=== PATIENT | female | born 1945 | race American Indian/Alaskan Native ===

== ENCOUNTER 2020-09-16 08:52 | Observation (INO) | payer MEDICARE ==
[2020-09-16] MEDS ORDERED: SODIUM CHLORIDE 0.9% 500 ML 500 ML IV SCH (10:00)
[2020-09-16] MEDS ORDERED: ASPIRIN EC 325 MG TAB PO NR (10:21)
[2020-09-16 10:25] LABS: Hemoglobin 11.4 gm/dl (10.1-14.3); Mean Corpuscular HGB Conc 34 % (30-34); Mean Corpuscular Volume 95 fl (79-97); Platelet Count 269 K/mm3 (140-440); Red Blood Count 3.56 M/mm3 (3.65-5.03); Red Cell Distribution Width 14.7 % (13.2-15.2)
[2020-09-16 10:38] LABS: Blood Urea Nitrogen 12 mg/dL (7-17); Calcium 9.4 mg/dL (8.4-10.2); Hemolysis Index 1
[2020-09-16 10:48] LABS: BUN/Creatinine Ratio 17
[2020-09-16 11:17] LABS: Total Cells Counted 100
[2020-09-16 11:18] LABS: Platelet Estimate Consistent w Auto; RBC Morphology Normal
[2020-09-16 11:23] LABS: INR 1.01 (0.87-1.13)
[2020-09-16] MEDS: NITROGLYCERIN SYRINGE 3 ML ONE ×2 (12:40→13:08)
[2020-09-16] MEDS: HEPARIN/NS 5000 UNIT/500ML 1,000 ML IR ONE ×2 (12:40→13:00)
[2020-09-16] MEDS: LIDOCAINE (2%) 20 MG/1 ML VIAL 20 ML MDV INFILTRATI ONE ×2 (12:41→13:04)
[2020-09-16] MEDS: VERAPAMIL 5 MG/2 ML INJ ONE ×2 (12:41→13:08)
[2020-09-16] MEDS: fentaNYL 100 MCG/2 ML INJ ONE ×3 (12:41→13:05)
[2020-09-16] MEDS: MIDAZOLAM 2 MG/2 ML INJ ONE ×3 (12:41→13:05)
[2020-09-16] MEDS: HEPARIN 10,000 UNITS/10 ML VIAL ONE ×4 (12:42→13:45)
[2020-09-16] MEDS ORDERED: ALUM-MAG HYDROXIDE-SIMETHICONE 200-200-20MG/5ML ORAL LIQD 30 ML ONE (14:00)
[2020-09-16] MEDS ORDERED: CLOPIDOGREL 75 MG TAB ONE (14:00)
--- NOTE | 2020-09-16 14:13 | Cardiac Catherization Report ---
CARDIAC CATHETERIZATION AND CORONARY ANGIOPLASTY REASON FOR PROCEDURE: Chest pain, abnormal thallium stress test. PROCEDURES: 1. Left heart catheterization. 2. Selective left and right coronary angiography. 3. Left ventricular angiography. 4. Coronary angioplasty and stenting of the right coronary artery. 5. Sedation time, start 1303, end 1350. I was present for the entire procedure and supervised the moderate sedation protocol. The patient was prepped and draped in a sterile fashion after informed consent. Right radial cath site was prepped and draped after a negative Davis's test. Right radial artery was entered using Seldinger technique followed by placement of a 6-Bel[place]ian hydrophilic sheath. Routine radial cocktail was administered via the sheath. Selective left and right coronary angiography was performed using a #3.5 left Vero and #4 right Vero. The right Vero catheter was used for left ventricular angiography. The angiograms were reviewed. CORONARY ANGIOGRAPHY: The left main coronary artery was free of significant disease. Left anterior descending artery and its diagonal branches contained mild luminal irregularities. The circumflex artery and its obtuse marginal branches were free of significant disease. The right coronary artery was dominant. This vessel contained long segment of severe disease in its mid portion, associated with moderate calcification. There was an up to 75-80% luminal stenosis within this segment. Following that, around the acute margin, there was another severe lesion, with up to 95% luminal stenosis. Left ventricular systolic function was within normal limits with ejection fraction estimated at greater than 60-65%. CORONARY ANGIOPLASTY: After review of the angiograms, ad hoc intervention to the right coronary artery was recommended. We selected a hockey-stick guiding catheter and advanced to the right coronary ostium. A 0.014 inch Instruction Dean 50 guidewire was then transitioned through the vessel across the lesional segments. Pre-dilatation balloon angioplasty using a 3.0 mm balloon catheter, both around the acute margin and in the mid vessel. Following balloon pre-dilatation, we then deployed a 3.0 x 15 mm drug-eluting stent around the acute margin. This was followed by another 3.0 x 26 mm drug-eluting stent across the mid segment stenosis. Post-dilatation balloon angioplasty was then done around the acute margin using a 3.0 mm NC balloon. Following angioplasty, stenting and post-dilatation, there was an excellent angiographic result at the treated segments, 0 residual stenosis and CHARMAINE 3 flow. Procedure was well tolerated by the patient and there were no complications. The catheters and the wires were removed, sheath removed, and hemostasis achieved using a TR band. CONCLUSION: 1. Single-vessel coronary artery disease with severe diffuse disease of the mid segment of the right coronary artery, and the focal severe stenosis around the acute margin. 2. Successful ad hoc angioplasty and stenting with deployment of serial, 3.0 mm drug-eluting stents. 3. Normal left ventricular systolic function, ejection fraction 60-65%. JOB# [id number] CA/NTS
[2020-09-16] MEDS ORDERED: ZOLPIDEM 5 MG TAB PO PRN (14:16)
[2020-09-16] MEDS ORDERED: ONDANSETRON 4 MG/2 ML INJ IV PRN (14:16)
--- NOTE | 2020-09-16 14:22 | Event Note ---
Date: 09/16/20 The patient presented for outpatient cardiac catheterization, completed via the right radial approach, no complications. We found a long segment of disease of the mid right coronary artery, as well as around the acute margin. Successful angioplasty was performed with implantation of serial, 3.0 mm drug-eluting stents. Excellent angiographic result, no complications. The patient will be admitted for routine, 23-hour post procedure observation, anticipated discharge in the morning. Aspirin, Plavix, for dual oral antiplatelet therapy in addition to other guideline directed medical therapy.
[2020-09-16] MEDS ORDERED: NON-FORMULARY EACH (Losartan [Cozaar] 100 MG Tablet) PO SCH (14:30)
[2020-09-16] MEDS ORDERED: SODIUM CHLORIDE 0.9% 1000 ML 1,000 ML IV SCH (15:30)
[2020-09-16] MEDS: METOPROLOL SUCCINATE XL 25 MG TAB PO SCH (16:17)
[2020-09-16] MEDS: amLODIPine 5 MG TAB PO SCH (16:19)
[2020-09-17 06:16] LABS: Basophils % (Auto) 0.6 % (0.0-1.8); Eosinophils % (Auto) 1.3 % (0.0-4.3); Hematocrit 28.2 % (30.3-42.9); Hemoglobin 9.5 gm/dl (10.1-14.3); Lymphocytes % (Auto) 26.7 % (13.4-35.0); Mean Corpuscular HGB Conc 34 % (30-34); Mean Corpuscular Volume 96 fl (79-97); Monocytes # (Auto) 0.4 K/mm3 (0.0-0.8); Monocytes % (Auto) 10.9 % (0.0-7.3); Platelet Count 217 K/mm3 (140-440); Red Blood Count 2.95 M/mm3 (3.65-5.03); Red Cell Distribution Width 14.7 % (13.2-15.2)
[2020-09-17 06:47] LABS: Blood Urea Nitrogen 14 mg/dL (7-17); Calcium 8.2 mg/dL (8.4-10.2); Hemolysis Index 18
[2020-09-17 06:49] LABS: BUN/Creatinine Ratio 23
[2020-09-17 06:58] LABS: Chol/HDL Ratio 3.03 %; HDL Cholesterol 32 mg/dL (40-59); LDL Cholesterol,Direct 54 mg/dL (50-130)
--- NOTE | 2020-09-17 08:34 | XRay Report ---
CHEST 1 VIEW INDICATION: post pci. COMPARISON: None FINDINGS: SUPPORT DEVICES: None. HEART: Within normal limits. LUNGS/PLEURA: No acute air space or interstitial disease. ADDITIONAL FINDINGS: None. IMPRESSION: 1. No acute findings. Signer Name: Noel Alves MD Signed: 09/17/2020 8:29 AM Workstation Name: [id number]
[2020-09-17 09:44] VITALS: BP 126/63
[2020-09-17] MEDS: METOPROLOL SUCCINATE XL 25 MG TAB PO SCH (09:45)
[2020-09-17] MEDS: amLODIPine 5 MG TAB PO SCH (09:46)
--- NOTE | 2020-09-17 09:52 | Short Stay Summary ---
Short Stay Documentation Date of service: 09/17/20 - History H&P: obtained from office - Allergies and Medications Current Medications: Allergies No Known Allergies Allergy (Verified 09/16/20 09:47) Home Medications Medication Instructions Recorded Confirmed Last Taken Type Clopidogrel [Plavix] 75 mg PO DAILY 09/16/20 09/16/20 09/16/20 10:40 History Losartan [Cozaar] 100 mg PO DAILY 09/16/20 09/16/20 09/15/20 History 100 mg Metoprolol Xl [Metoprolol 25 mg PO DAILY 09/16/20 09/16/20 09/15/20 History SUCCINATE ER TAB] 25 mg Triamter/Hctz 37.5-25 mg 1 tab PO DAILY 09/16/20 09/16/20 09/15/20 History [Maxzide-25] 1 tab amLODIPine 5 mg PO DAILY 09/16/20 09/16/20 09/15/20 History 5 mg Active Medications Amlodipine Besylate (Amlodipine 5 Mg Tab) 5 mg PO DAILY [facility] Last Admin: 09/17/20 09:46 Dose: 5 mg Documented by: Aspirin (Aspirin Ec 325 Mg Tab) 325 mg PO QDAY [facility] Last Admin: 09/17/20 09:45 Dose: 325 mg Documented by: Atorvastatin Calcium (Atorvastatin 40 Mg Tab) 40 mg PO QHS [facility] Last Admin: 09/16/20 21:54 Dose: 40 mg Documented by: Clopidogrel Bisulfate (Clopidogrel 75 Mg Tab) 75 mg PO DAILY [facility] Last Admin: 09/17/20 09:45 Dose: 75 mg Documented by: Sodium Chloride (Nacl 0.9% 1000 Ml) 1,000 mls @ 100 mls/hr IV DIRECT [facility] Stop: 09/17/20 15:29 Last Admin: 09/16/20 15:00 Dose: 100 mls/hr Documented by: Isosorbide Mononitrate (Isosorbide Mononitrate Er 30 Mg Tab) 30 mg PO QDAY [facility] Last Admin: 09/17/20 09:45 Dose: 30 mg Documented by: Losartan Potassium (Losartan 50 Mg Tab) 100 mg PO QDAY [facility] Last Admin: 09/17/20 09:45 Dose: 100 mg Documented by: Metoprolol Succinate (Metoprolol Succinate Xl 25 Mg Tab) 25 mg PO DAILY [facility] Last Admin: 09/17/20 09:45 Dose: 25 mg Documented by: Ondansetron HCl (Ondansetron 4 Mg/2 Ml Inj) 4 mg IV Q8H PRN PRN Reason: N/V unrelieved by Fidencio Triamterene/Hydrochlorothiazide (Triamter/Hctz 37.5-25 Mg Tab) 1 each PO DAILY [facility] Last Admin: 09/17/20 09:47 Dose: 1 each Documented by: Zolpidem Tartrate (Zolpidem 5 Mg Tab) 5 mg PO QHS PRN PRN Reason: Sleep - Physical exam General appearance: no acute distress HEENT: PERRLA Heart: Regular rate, Normal S1, Normal S2 Extremities: No edema - Brief post op/procedure progress note Procedure: The patient presented for outpatient cardiac catheterization, completed via the right radial approach, no complications. We found a long segment of disease of the mid right coronary artery, as well as around the acute margin. Successful angioplasty was performed with implantation of serial, 3.0 mm drug-eluting stents. Excellent angiographic result, no complications. Condition: stable - Hospital course Hospital course: Stable overnight observation. - Disposition Condition at discharge: Stable Disposition: DC-01 TO HOME OR SELFCARE Short Stay Discharge Plan Activity: advance as tolerated Weight Bearing Status: Full Weight Bearing Diet: low fat, low cholesterol, low salt Wound: open to air, keep clean and dry Follow up with: NEW AMES MD [Primary Care Provider] - 7 Days PEARL CLARK MD [Staff Physician] - 7 Days Prescriptions: Aspirin EC [Ecotrin] 325 mg PO QDAY #30 tablet ISOSORBIDE MONOnitrate [Imdur ER] 30 mg PO QDAY #30 tablet Clopidogrel [Plavix] 75 mg PO DAILY #30
[2020-09-17] MEDS ORDERED: LOSARTAN 50 MG TAB PO SCH (10:00)
[2020-09-17] MEDS ORDERED: CLOPIDOGREL 75 MG TAB PO SCH (10:00)
[2020-09-17] MEDS ORDERED: ASPIRIN EC 325 MG TAB PO SCH (10:00)
[2020-09-17] MEDS ORDERED: TRIAMTER/HCTZ 37.5-25 MG TAB PO SCH (10:00)
== END 2020-09-17 12:22 | disposition home or self-care (01) ==
LOC: CATHLABREC 08:52 → 4A 14:16
PROVIDERS: ADMIT Internal Medicine Cardiovascular Disease; ATTEND Internal Medicine Cardiovascular Disease
DX: I25.10 Atherosclerotic heart disease of native coronary artery without angina pectoris (principal); I73.9 Peripheral vascular disease, unspecified; I71.4 Abdominal aortic aneurysm, without rupture; I10 Essential (primary) hypertension; E78.5 Hyperlipidemia, unspecified; I34.0 Nonrheumatic mitral (valve) insufficiency; M79.662 Pain in left lower leg; R42 Dizziness and giddiness; R07.89 Other chest pain; R94.31 Abnormal electrocardiogram [ECG] [EKG]; R55 Syncope and collapse; Z98.61 Coronary angioplasty status; Z79.82 Long term (current) use of aspirin
CPT/HCPCS: 36415; 71045; 80048; 80061; 82550; 82553; 82962; 84484; 85025; 85610; 85730; 93005; 93458; 96360; 96361; A9270; C1725; C1769; C1874; C1894; C9600; G0378; J1644; J2250; J3010; J7030; J7040; 85007; 92928; Q9967

== ENCOUNTER 2022-03-18 08:09 | Emergency (ER) | payer MEDICARE ==
--- NOTE | 2022-03-18 08:58 | XRay Report ---
CHEST 2 VIEWS INDICATION / CLINICAL INFORMATION: Dyspnea. COMPARISON: None available. FINDINGS: SUPPORT DEVICES: None. HEART / MEDIASTINUM: No significant abnormality. LUNGS / PLEURA: 3 cm right upper lung masslike opacity. No pneumothorax. ADDITIONAL FINDINGS: No significant additional findings. IMPRESSION: 1. 3 cm right upper lung masslike opacity. CT chest is recommended for further evaluation. Signer Name: Srini Rodriguez MD Signed: 03/18/2022 8:53 AM Workstation Name: [id number]
[2022-03-18 09:18] LABS: INR 0.91 (0.87-1.13)
[2022-03-18 09:19] LABS: Partial Thromboplastin Time 36.2 Sec. (24.2-36.6)
[2022-03-18 09:26] LABS: Creatine Kinase MB 2.6 ng/mL (0.0-4.0)
[2022-03-18 09:30] LABS: Alanine Aminotransferase 14 units/L (7-56); Albumin 4.3 g/dL (3.9-5); Blood Urea Nitrogen 6 mg/dL (7-17); Calcium 9.6 mg/dL (8.4-10.2); Hemolysis Index 3
[2022-03-18 09:31] LABS: BUN/Creatinine Ratio 10
[2022-03-18] MEDS ORDERED: ALBUTEROL 2.5 MG/3 ML NEBU IH ONE ×2 (10:09→12:13)
[2022-03-18] MEDS ORDERED: methylPREDNISolone Sod Succinate 125 MG/2 ML INJ IV ONE (10:10)
[2022-03-18] MEDS ORDERED: SODIUM CHLORIDE 0.9% 500 ML 500 ML IV ONE (10:14)
[2022-03-18 10:26] LABS: Basophils % (Auto) 0.7 % (0.0-1.8); Eosinophils # (Auto) 0.1 K/mm3 (0.0-0.4); Eosinophils % (Auto) 1.7 % (0.0-4.3); Hematocrit 27.6 % (30.3-42.9); Hemoglobin 9.6 gm/dl (10.1-14.3); Lymphocytes # (Auto) 0.4 K/mm3 (1.2-5.4); Lymphocytes % (Auto) 9.5 % (13.4-35.0); Mean Corpuscular HGB Conc 35 % (30-34); Mean Corpuscular Volume 93 fl (79-97); Monocytes # (Auto) 0.3 K/mm3 (0.0-0.8); Monocytes % (Auto) 7.3 % (0.0-7.3); Platelet Count 341 K/mm3 (140-440); Red Blood Count 2.96 M/mm3 (3.65-5.03); Red Cell Distribution Width 16.9 % (13.2-15.2)
--- NOTE | 2022-03-18 12:20 | Cat Scan Report ---
CT CHEST WITH CONTRAST INDICATION / CLINICAL INFORMATION: RUL mass, sob, cough, wheezing. TECHNIQUE: Axial CT images were obtained through the chest after IV contrast. All CT scans at this [facility] are performed using CT dose reduction for ALARA by means of automated exposure control. COMPARISON: Same day radiograph FINDINGS: HEART: No significant abnormality. CORONARY ARTERY CALCIFICATION: Not evaluable -- Coronary stent(s). THORACIC AORTA: Mild atherosclerotic calcification without acute abnormality. MEDIASTINUM / RALEIGH: No significant abnormality. PLEURA: No pleural effusion. No pneumothorax. LUNGS: Right upper lobe cavitary lesion measures 3.1 x 2.8 cm on image 45 series 2. ADDITIONAL FINDINGS: None. UPPER ABDOMEN: Left adrenal nodule measures 2.1 x 1.9 cm on image 119 series 2. SKELETAL SYSTEM: No significant abnormality. IMPRESSION: 1. Cavitary lesion in the right upper lobe most likely represents primary pulmonary malignancy. Left adrenal nodule is concerning for metastatic disease. Cavitary infection such as tuberculosis is not e xcluded. IMPORTANT FINDING: Cavitary lesion Time of Communication (FIRE CHIEF'S AIDE/CDT): 11:15 Licensed Practitioner Receiving Report: Dr. Garcia Signer Name: Srini Rodriguez MD Signed: 03/18/2022 12:16 PM Workstation Name: [employer]
[2022-03-18] MEDS ORDERED: DOXYCYCLINE 100 MG CAP PO ONE (12:58)
[2022-03-18 13:15] VITALS: BP 146/80
--- NOTE | 2022-03-18 13:42 | Emergency Department Report ---
HPI - General Chief Complaint: Dyspnea/Respdistress PUI?: Yes Time Seen by Provider: 03/18/22 09:12 - HPI HPI: 76-year-old female with multiple medical comorbidities brought in by her daughter for evaluation of several days of progressively worsening yellow phlegm productive cough wheezing and shortness of breath. Patient denies any sick contacts or travel history. She has been taking [id number] Robitussin without improvement in her symptoms. She denies any chest pain, no recent prolonged travel history or immobilization. No night sweats, no body aches, no fevers/chills no hemoptysis, no unintentional weight loss. No recent prolonged travel hx or immobilization. ED Past Medical Hx - Past Medical History Hx Hypertension: Yes Hx Heart Attack/AMI: No Hx Congestive Heart Failure: No Hx Diabetes: No Hx Deep Vein Thrombosis: No Hx Pulmonary Embolism: No Hx GERD: Yes Hx Liver Disease: No Hx Renal Disease: No Hx Sickle Cell Disease: No Hx Arthritis: No Hx Seizures: No Hx Kidney Stones: No Hx Asthma: No Hx COPD: No Hx Dementia: No Hx HIV: No Additional medical history: STROKE ,BRONCHITIS - Surgical History Hx Pacemaker: No Hx Internal Defibrillator: No Hx Cholecystectomy: No Hx Breast Surgery: No - Social History Smoking Status: Current Every Day Smoker Substance Use Type: None - Medications Home Medications: Home Medications Medication Instructions Recorded Confirmed Last Taken Type Losartan [Cozaar] 100 mg PO DAILY 09/16/20 09/16/20 09/15/20 History 100 mg Metoprolol Xl [Metoprolol 25 mg PO DAILY 09/16/20 09/16/20 09/15/20 History SUCCINATE ER TAB] 25 mg Triamter/Hctz 37.5-25 mg 1 tab PO DAILY 09/16/20 09/16/20 09/15/20 History [Maxzide-25] 1 tab amLODIPine 5 mg PO DAILY 09/16/20 09/16/20 09/15/20 History 5 mg Aspirin EC [Ecotrin] 325 mg PO QDAY #30 tablet 09/17/20 Unknown Rx Clopidogrel [Plavix] 75 mg PO DAILY #30 09/17/20 Unknown Rx ISOSORBIDE MONOnitrate [Imdur ER] 30 mg PO QDAY #30 tablet 09/17/20 Unknown Rx Rosuvastatin (Nf) [Crestor] 5 mg PO QHS 09/17/20 09/17/20 Unknown History Albuterol Sulfate [Proventil Hfa] 6.7 gm IH Q4H 7 Days #1 03/18/22 Unknown Rx Doxycycline Monohydrate 100 mg PO BID 7 Days #14 cap 03/18/22 Unknown Rx [Doxycycline Monohydrate CAP] predniSONE [Deltasone] 20 mg PO QDAY 5 Days #15 tab 03/18/22 Unknown Rx ED Review of Systems ROS: Stated complaint: CHEST PAINS Other details as noted in HPI Comment: All other systems reviewed and negative Constitutional: no symptoms reported Physical Exam - Physical Exam Vital Signs: Vital Signs 03/18/22 03/18/22 03/18/22 08:15 09:50 10:29 Temperature 98.5 F 98.2 F Pulse Rate 65 72 Respiratory 22 14 Rate Blood Pressure Blood Pressure 156/62 150/72 [Left] O2 Sat by Pulse 99 100 100 Oximetry 03/18/22 03/18/22 03/18/22 10:30 10:43 10:45 Temperature 97.9 F Pulse Rate 67 Respiratory 18 15 Rate Blood Pressure 158/77 Blood Pressure [Left] O2 Sat by Pulse 96 100 100 Oximetry 03/18/22 03/18/22 03/18/22 11:00 11:16 11:30 Temperature Pulse Rate 69 67 67 Respiratory 12 18 12 Rate Blood Pressure 158/77 158/77 158/77 Blood Pressure [Left] O2 Sat by Pulse 99 94 96 Oximetry 03/18/22 03/18/22 03/18/22 11:54 12:00 12:16 Temperature Pulse Rate 77 85 76 Respiratory 17 21 14 Rate Blood Pressure 158/77 138/82 142/75 Blood Pressure [Left] O2 Sat by Pulse 98 99 Oximetry 03/18/22 03/18/22 03/18/22 12:30 12:45 13:00 Temperature Pulse Rate 79 80 Respiratory 15 23 Rate Blood Pressure 158/77 146/80 146/80 Blood Pressure [Left] O2 Sat by Pulse 99 98 Oximetry General: Gen: pt is well appearing, no acute distress HEENT: Normocephalic atraumatic pupils equally round and reactive to light extraocular muscles intact sclera anicteric Neck: Full range of motion, no midline spinal tenderness palpation, no JVD, no carotid bruits, no nuchal rigidity CVS: S1-S2 regular rate and rhythm with no gallops rubs or murmurs, chest wall nontender Pulmonary: Clear to auscultation bilaterally, no wheezes rales or rhonchi Abdomen: Soft nondistended nontender no guarding or rebound tenderness, no palpable deformities or step-offs, normal active bowel sounds, no hepatosple nomegaly, no pulsatile masses : Deferred Extremities: No cyanosis no clubbing no edema, intact distal peripheral pulses, Integumentary: Skin normal, no petechia no purpura no abscess no lacerations no evidence of trauma no evidence of infection Neuro: Patient is awake alert and oriented to person place time situation, mentating well, cranial nerves II through XII intact, no focal neurodeficits, sensation grossly tact Psych: Calm cooperative, mood affect normal ED Course Vital Signs 03/18/22 03/18/22 03/18/22 08:15 09:50 10:29 Temperature 98.5 F 98.2 F Pulse Rate 65 72 Respiratory 22 14 Rate Blood Pressure Blood Pressure 156/62 150/72 [Left] O2 Sat by Pulse 99 100 100 Oximetry 03/18/22 03/18/22 03/18/22 10:30 10:43 10:45 Temperature 97.9 F Pulse Rate 67 Respiratory 18 15 Rate Blood Pressure 158/77 Blood Pressure [Left] O2 Sat by Pulse 96 100 100 Oximetry 03/18/22 03/18/22 03/18/22 11:00 11:16 11:30 Temperature Pulse Rate 69 67 67 Respiratory 12 18 12 Rate Blood Pressure 158/77 158/77 158/77 Blood Pressure [Left] O2 Sat by Pulse 99 94 96 Oximetry 03/18/22 03/18/22 03/18/22 11:54 12:00 12:16 Temperature Pulse Rate 77 85 76 Respiratory 17 21 14 Rate Blood Pressure 158/77 138/82 142/75 Blood Pressure [Left] O2 Sat by Pulse 98 99 Oximetry 03/18/22 03/18/22 03/18/22 12:30 12:45 13:00 Temperature Pulse Rate 79 80 Respiratory 15 23 Rate Blood Pressure 158/77 146/80 146/80 Blood Pressure [Left] O2 Sat by Pulse 99 98 Oximetry ED Medical Decision Making - Lab Data Result diagrams: 03/18/22 08:49 03/18/22 08:49 - Radiology Data Radiology results: report reviewed - Medical Decision Making 76-year-old female presents for evaluation of cough wheezing and shortness of breath. Vital signs stable. Patient's lungs are clear to auscultation bilaterally on exam and she is overall very well-appearing. Labs and diagnostic imaging results reviewed. During my multiple discussions with the pt, the patient repeatedly told this provider multiple times "no matter what to say, I am not being admitted to the hospital. I refuse!!" CT imaging results I also discussed at length with the pt and her daughter,, the documented differential provided by the reading radiologist. I informed her that the mass is concerning for underlying lung maligancy, and that per the reading radiologist, RUL mass may represent: SQCC of the lung with ?metastatic disease to the pt's L adrenal gland vs. Tuberculosis) I also discussed with them, my extensive conversation with the on-call infectious diseases physician. I str ongly recommended multiple times that patient she be admitted to the hospital for further work-up but the patient adamantly refused. She is AO x4 mentating well ,and per my assessment has decision-making capacity. However again she repeatedly refuses admission and request to be discharged home. The pt was given doxycycline in the event that there is some clinical presentation of developing postobstructive pneumonia. She was given a prescription for doxycycline, steroids, and Proventil inhaler. She states repeatedly that she has a confirmed follow-up appointment with her primary care doctor on March 28, 2022 and will discuss the need for with further work-up and to be ruled out for tuberculosis then. She was given a copy of her imaging via disc provided by the radiology department. She was advised to keep a mask on at all times until she has been cleared by her pcp or follow up referral provider. Prior to discharge, she was given strict verbal and written return precautions. Patient verbalized understanding and agreement plan of care. Critical Care Time: No Critical care attestation.: If time is entered above; I have spent that time in minutes in the direct care of this critically ill patient, excluding procedure time. ED Disposition Clinical Impression: Mass of right lung, Cough Disposition: HOME / SELF CARE / HOMELESS Is pt being admited?: No Does the pt Need Aspirin: No Condition: Stable Additional Instructions: IT WAS STRONGLY ADVISED THAT YOU REMAIN TO BE ADMITTED TO THE HOSPITAL FOR FURTHER WORKUP AND MANAGEMENT OF YOUR SYMPTOMS. Your xray shows that you have a mass in the right upper lobe of your lung. The radiologist has reported that your cat scan shows that the mass is concerning for underlying malignancy. But he has also stated that because of the appearance of the mass, the mass can also be due, although less likely is caused by, tuberculosis. Because you are refusing admission, it is very important that you follow-up with your primary care doctor soon as possible. Please have your doctor do 2 things at the time of your next immediate follow-up appointment: 1. AFB (acid fast bacillus test) Cultures: This is as a test where your sputum is checked for the presence of underlying tuberculosis 2. Pulmonology: You will need to be referred to a beating machine operator. The beating machine operator is a speci alist who can further evaluate your lungs and will be able to order you for bronchoscopy, which will be needed to obtain samples of your lung tissue to determine the exact nature of the lung mass. Take prednisone as well as doxycycline as prescribed, starting on tomorrow, Saturday, March 19, 2022. Use your albuterol inhaler as needed for wheezing and/or cough. Observe your symptoms very carefully. Return to the nearest emergency department as soon as possible if you develop any fever of 100.4 Fahrenheit or higher, worsening shortness of breath or difficulty breathing, persistent chest pains, dizziness, or if any other new worrisome symptoms develop Prescriptions: predniSONE [Deltasone] 20 mg PO QDAY 5 Days #15 tab Doxycycline Monohydrate [Doxycycline Monohydrate CAP] 100 mg PO BID 7 Days #14 cap Albuterol Sulfate [Proventil Hfa] 6.7 gm IH Q4H 7 Days #1 Referrals: PRIMARY CARE, [Primary Care Provider] - 3-5 Days
--- NOTE | 2022-03-21 13:45 | Electrocardiograph Report ---
[facility] Test Date: 2022-03-18 Test Time: 08:09:14 Pat Name: DENA CRUZ Department: Room: Gender: F Pallet Repairer: PUNEET : 1945 Requested By: LANCE LOPEZ Order Number: [id number] Reading MD: Reggie Rubin Measurements Intervals [place] Rate: 69 P: 57 [place]: 286 QRS: 10 QRSD: 86 T: 75 QT: 418 QTc: 448 Interpretive Statements Sinus rhythm Prolonged [place] interval Probable left atrial enlargement Anterior infarct, old No previous ECG available for comparison Electronically Signed On 03-21-2022 13:44:41 EDT by Reggie Rubin
== END 2022-03-18 13:16 | disposition home or self-care (01) ==
LOC: ED 08:09
DX: R05.9 Cough, unspecified (principal); R91.8 Other nonspecific abnormal finding of lung field; I10 Essential (primary) hypertension; K21.9 Gastro-esophageal reflux disease without esophagitis; F17.200 Nicotine dependence, unspecified, uncomplicated
CPT/HCPCS: 36415; 71046; 71260; 80053; 82550; 82553; 83880; 84484; 85025; 85610; 85730; 93005; 96374; 99284; J2930; J7040; Q9967